=== PATIENT | male | born 1990 | race Caucasian/White ===

== ENCOUNTER 2020-09-18 21:22 | Emergency (ER) | payer OTHER, SELFPAY ==
[2020-09-18 21:23] VITALS: BP 140/82; PULSE 871; RESP 15; TEMP 36; O2SAT 99; BMI 23.6
--- NOTE | 2020-09-18 21:36 | EX.ED.GENINJ ---
HPI History of Present Illness Chief Complaint: Laceration Informant: patient Narrative Narrative: 30-year-old male presents with laceration to the right thumb. He does not know his last tetanus shot was. This happened at work when he cut it on some metal. He states that he could get to stop bleeding so he started to apply superglue to it. [facility] Medical History Smoker Tonsil and adenoid disease, chronic Allergy/AdvReac Type Severity Reaction Status Date / Time No Known Allergies Allergy Verified 09/18/20 21:24 no surgical history Social History (Updated 09/18/20 @ 21:[address] David Castillo DO) Smoking Status: Current every day smoker tobacco type: cigarettes substance use type: does not use ROS ROS ED Constitutional Constitutional ED: Denies chills or weight loss Eyes Eyes: Denies change in vision or diplopia ENT ENT ED: Denies ear pain, rhinorrhea or sore throat Cardiovascular Cardiovascular: Denies chest pain, orthopnea, palpitations or racing heartbeat Respiratory/Chest Respiratory/Chest: Denies cough, dyspnea or orthopnea Gastrointestinal Gastrointestinal: Denies abdominal pain, diarrhea, nausea or vomiting Genitourinary Genitourinary ED: Denies dysuria, hematuria or urinary frequency Musculoskeletal Musculoskeletal: Denies arthralgias or myalgias Integumentary Reports other Details: See history of present illness ; Denies abscess or rash Neurologic Neurologic: Denies headache(s) or weakness Psychiatric Psychiatric: Denies anxiety, depression, suicidal ideation or suicidal thoughts Endocrine Endocrinology: Denies polydipsia, polyphagia or polyuria Allergic/Immunologic Allergic/Immunologic ED: Denies mouth swelling, tongue swelling or urticaria EXAM Physical Exam Const Vital Signs: 09/18/20 21:23 Temperature 96.8 F L Temperature Source Temporal Pulse Rate 871 H Respiratory Rate 15 Blood Pressure 140/82 H Blood Pressure Mean 101 Pulse Ox 99 Oxygen Delivery Method Room Air Positive well nourished and well developed General Appearance ED: well developed HEENT Reports normocephalic, head/scalp atraumatic and moist mucous membranes Eyes PERRL and EOMs intact bilaterally Neck no lymphadenopathy, supple and no JVD Resp normal respiratory effort and clear to auscultation bilaterally Cardio regular rate, regular rhythm and no murmurs GI normal to inspection, nondistended, normoactive bowel sounds and non-tender Palpation: soft Back/Spine no CVA tenderness and normal ROM Extremity normal to inspection General Extremety ED: Negative for edema General Extremity: Negative for edema Neuro oriented x3 and CN's II-XII intact bilaterally Sensorium / Orientation: alert Motor Exam: strength 5/5 throughout Psych mental status grossly normal Mood & Affect: Negative for depressed or tearful Skin no rashes or lesions noted Skin Narrative: There is a 1.5 cm laceration to the dorsum of the right thumb. There is no active bleeding. Tendon function appears normal. The patient has a large amount of superglue over the area. MDM MDM MDM Narrative Medical decision making narrative: Patient glued the finger with a large amount of superglue. Think I would do more damage by attempting to scrub and remove this. We will place him on Keflex to help prevent infection. He did irrigated at the workplace. We will update his tetanus. Return if worsening or concerns Discharge Plan Triage Chief Complaint: Laceration ED Provider: David Castillo Dx/Rx/DC Orders Clinical Impression: Laceration of right thumb
[2020-09-18] MEDS: Cephalexin 250 MG Capsule 500 MG PO (21:48)
[2020-09-18] MEDS: Diphth,Pertuss(Acell),Tet Vac 0.5 ML Vial IM (21:49)
[2020-09-18 21:54] VITALS: BP 135/102; PULSE 74; RESP 16; O2SAT 97
== END 2020-09-18 22:22 | disposition home or self-care (01) ==
LOC: ED 21:48
PROVIDERS: Emergency Provider Emergency Medicine
DX: S61.011A Laceration without foreign body of right thumb without damage to nail, initial encounter (principal); W26.8XXA Contact with other sharp object(s), not elsewhere classified, initial encounter; Y93.89 Activity, other specified; Y92.89 Other specified places as the place of occurrence of the external cause; Y99.0 Civilian activity done for income or pay; F17.210 Nicotine dependence, cigarettes, uncomplicated; Z23 Encounter for immunization
CPT/HCPCS: 90715; 99282